=== PATIENT | male | born 1965 | race Caucasian/White ===

== ENCOUNTER 2019-12-13 09:30 | Outpatient (CLI) | payer BC, SELFPAY ==
--- NOTE | 2019-12-13 09:37 | CT_ITS ---
WS: [id number] LDCT LUNG CANCER SCREENING TECHNIQUE: Noncontrast CT of the chest with coronal and sagittal reformatted images. CLINICAL INFORMATION: HX OF TOBACCO USE COMPARISON: None. DLP: 83.48 mGy.cm DIvol: 2.[address] scans at [facility] use at least one of these dose optimization techniques: automat ed exposure control; mA and/or kV adjustment per patient size (includes targeted exams where dose is matched to clinical indication); or iterative reconstruction. FINDINGS: Mild chronic emphysematous changes. No suspicious pulmonary parenchymal opacities. No acute pulmonary infiltrates. Calcified subcarinal lymph nodes. Coronary calcification. CT/CT lung screening [id number] IMPRESSION: LUNG-RADS: 1-Negative FOLLOW UP: 12 Month: Continue annual screening with LDCT
== END 2019-12-13 09:31 | disposition home or self-care (01) ==
LOC: RAD 09:34
PROVIDERS: Family Provider Family Medicine; PCP Family Medicine; Visit Provider Family Medicine
DX: Z12.2 Encounter for screening for malignant neoplasm of respiratory organs (principal); Z87.891 Personal history of nicotine dependence
CPT/HCPCS: G0297

== ENCOUNTER 2020-06-16 10:12 | Outpatient (CLI) | payer BC, OTHER, SELFPAY ==
--- NOTE | 2020-06-16 10:21 | CT_ITS ---
WS: [id number] LDCT LUNG CANCER SCREENING TECHNIQUE: Noncontrast CT of the chest with coronal and sagittal reformatted images. CLINICAL INFORMATION: NICOTINE DEPENDENCE, CIGARETTES COMPARISON: December 13, 2019 DLP: 53.0 mGy.cm DIvol: 1.[address] scans at [facility] use at least one of these dose optimization techniques: automat ed exposure control; mA and/or kV adjustment per patient size (includes targeted exams where dose is matched to clinical indication); or iterative reconstruction. FINDINGS: No suspicious pulmonary parenchymal opacities. No acute pulmonary infiltrates. No mediastinal or yaritza r lymphadenopathy. Aortic calcification. Calcified subcarinal lymph nodes. Coronary calcification. Adrenal glands are normal. Normal GE junction. No axillary lymphadenopathy. CT/CT lung screening [id number] IMPRESSION: LUNG-RADS: 1-Negative FOLLOW UP: 12 Month: Continue annual screening with LDCT
== END 2020-06-16 10:13 | disposition home or self-care (01) ==
LOC: RAD 10:18
PROVIDERS: PCP Family Medicine; Visit Provider Family Medicine
DX: Z12.2 Encounter for screening for malignant neoplasm of respiratory organs (principal); F17.210 Nicotine dependence, cigarettes, uncomplicated
CPT/HCPCS: 71271

== ENCOUNTER 2021-07-16 09:22 | Outpatient (CLI) | payer BC, OTHER, SELFPAY ==
--- NOTE | 2021-07-16 09:30 | CT_ITS ---
WS: [id number] LDCT LUNG CANCER SCREENING HISTORY: NICOTINE Dependence, cigarettes TECHNIQUE: Axial imaging performed from the apices to 1 cm below the costophrenic angles. Coronal and sagittal reformats are submitted with axial MIP series. All CT scans at [facility] use at least one of these dose optimization techniques: automated exposure control; mA and/or kV adjustment per patient size (includes targeted exams where dose is matched to clinical indication); or iterativ e reconstruction. DLP: 81.20 mGy.cm DIvol: Mean CTDIvol: 1.60 (mGy) COMPARISON: 06/16/2020 Diagnostic quality: Limited by breathing artifact. Lung Nodules: Benign calcified granuloma RIGHT middle lobe. Very mild peripheral interstitial thicken ing. No suspicious nodules or endobronchial lesions. Lungs: Moderate chronic emphysematous changes. Mild interstitial thickening and groundglass attenuati on which is diffuse similar to the prior study. Heart: Normal size heart. No pericardial effusions. There are a few minimal coronary artery calcifica tions which are unchanged. Other findings: Subcarinal calcified lymph node. No adenopathy. CT/CT lung screening [id number] IMPRESSION: LUNG-RADS: 1-Negative FOLLOW UP: 12 Month: Continue annual screening with LDCT OTHER FINDINGS (S MODIFIER): None.
== END 2021-07-16 09:23 | disposition home or self-care (01) ==
LOC: RAD 09:23
PROVIDERS: PCP Family Medicine; Visit Provider Family Medicine
DX: Z12.2 Encounter for screening for malignant neoplasm of respiratory organs (principal); F17.210 Nicotine dependence, cigarettes, uncomplicated
CPT/HCPCS: 71271

== ENCOUNTER 2022-08-16 14:20 | Outpatient (CLI) | payer OTHER, SELFPAY ==
--- NOTE | 2022-08-16 14:31 | CT_ITS ---
WS: [id number] LDCT LUNG CANCER SCREENING TECHNIQUE: Noncontrast CT of the chest with coronal and sagittal reformatted images. CLINICAL INFORMATION: NICOTINE DEPENDENCE, CIGARETTES COMPARISON: July 16, 2021 DLP: 78.49 mGy.cm DIvol: Mean CTDIvol: 1.60 (mGy) All CT scans at [facility] use at least one of these dose optimization techniques: automat ed exposure control; mA and/or kV adjustment per patient size (includes targeted exams where dose is matched to clinical indication); or iterative reconstruction. FINDINGS: Normal caliber thoracic aorta. No mediastinal or hilar lymphadenopathy. Mild coronary calcification. Subcarinal lymphadenopathy. Adrenal glands are normal. Splenic granulomas. Tiny esophageal hiatal her giovanny. No axillary lymphadenopathy. Calcified granuloma RIGHT middle lobe. CT/CT lung screening [id number] IMPRESSION: LUNG-RADS: 1-Negative FOLLOW UP: 12 Month: Continue annual screening with LDCT
== END 2022-08-16 14:21 | disposition home or self-care (01) ==
LOC: RAD 14:26
PROVIDERS: PCP Family Medicine; Visit Provider Family Medicine
DX: Z12.2 Encounter for screening for malignant neoplasm of respiratory organs (principal); F17.210 Nicotine dependence, cigarettes, uncomplicated
CPT/HCPCS: 71271

== ENCOUNTER 2023-08-18 14:06 | Outpatient (CLI) | payer OTHER, SELFPAY ==
--- NOTE | 2023-08-18 14:11 | CT_ITS ---
WS: [id number] LDCT LUNG CANCER SCREENING HISTORY: NICOTINE DEPENDENCE, CIGARETTES TECHNIQUE: Axial imaging performed from the apices to 1 cm below the costophrenic angles. Coronal and sagittal reformats are submitted with axial MIP series. All CT scans at [facility] use at least one of these dose optimization techniques: automated exposure control; mA and/or kV adjustment per patient size (includes targeted exams where dose is matched to clinical indication); or iterativ e reconstruction. DLP: 116.69 mGy.cm DIvol: Mean CTDIvol: 3.00 (mGy) COMPARISON: 08/16/2022 Diagnostic quality: Satisfactory Lungs: Hazy attenuation throughout both lungs is similar to the prior study. Consistent with smoking related to respiratory bronchiolitis. No mass or nodule identified. No endobronchial lesions. Heart: Normal size heart with no pericardial effusion.. Other findings: No adenopathy. A few scattered coronary artery calcifications. Benign RIGHT hilar lym ph nodes which are calcified. Very tiny hiatal hernia. Splenic granulomata. Hepatic steatosis. No adr enal mass. IMPRESSION: CT/CT lung screening [id number] LUNG-RADS: 1-Negative FOLLOW UP: 12 Month: Continue annual screening with LDCT OTHER FINDINGS (S MODIFIER): None.
== END 2023-08-18 14:07 | disposition home or self-care (01) ==
LOC: RAD 14:06
PROVIDERS: PCP Family Medicine; Visit Provider Family Medicine
DX: Z12.2 Encounter for screening for malignant neoplasm of respiratory organs (principal); F17.210 Nicotine dependence, cigarettes, uncomplicated; R91.8 Other nonspecific abnormal finding of lung field
CPT/HCPCS: 71271

== ENCOUNTER 2024-08-23 14:51 | Outpatient (CLI) | payer OTHER, SELFPAY ==
--- NOTE | 2024-08-23 14:54 | XR_ITS ---
WS: [id number] SCREENING DEXA SCAN [employer] CLINICAL INFORMATION: OTHER SPECIFIED DISORDERS OF BD COMPARISON: None. FINDINGS: The L1-L4 bone mineral density measures 0.990 g/cm2. This corresponds to a T score score of -1.9 and Z score of -2.3. Left femoral neck bone mineral density measures 0.972 g/cm2. This corresponds to a T score of -0.9 and Z score of -0.9. Right femoral neck bone mineral density measures 1.015 g/cm2. This corresponds to a T score -0.6of and Z score of -0.6. Mean femoral neck bone mineral density measures 0.993 g/cm2. This corresponds to a T score of -0.7 and Z score of -0.7. XR/XR DEXA axial skeleton* [id number] IMPRESSION: Osteopenia lumbar spine. Normal bone mineralization lumbar spine. Patient's FRAX calculated 10 year probability for major osteoporotic fracture i s 4.7% and osteoporotic hip fracture is 0.7%.
== END 2024-08-23 14:52 | disposition home or self-care (01) ==
LOC: RAD 14:53
PROVIDERS: PCP Family Medicine; Visit Provider Family Medicine
DX: M85.88 Other specified disorders of bone density and structure, other site (principal)
CPT/HCPCS: 77080